=== PATIENT | female | born 1980 | race Caucasian/White ===

== ENCOUNTER 2019-06-08 08:07 | Day surgery (SDC) | payer BC ==
[~2019-06-08] VITALS: Ht 157.5 cm; Wt 96.2 kg
[2019-06-08 09:40] LABS: HCG,QUAL RESULT NEGATIVE (NEGATIVE)
[2019-06-08] MEDS ORDERED: PROPOFOL 200MG/ 20ML VIAL (DIPRIVAN) IV ONE (12:00)
[2019-06-08] MEDS ORDERED: fentaNYL CITRATE/PF 100 MCG/2 ML AMP ONE (12:00)
[2019-06-08] MEDS ORDERED: MIDAZOLAM HCL 5 MG/ML VIAL (VERSED) IV ONE (12:00)
[2019-06-08] MEDS ORDERED: NS 1000 ML IV.SOLN IV ONE (12:00)
[2019-06-08] MEDS ORDERED: LR 1,000 ML IV.SOLN IV ONE (12:00)
[2019-06-08] MEDS ORDERED: ONDANSETRON HCL 4 MG/2 ML VIAL ONE (12:00)
[2019-06-08] MEDS ORDERED: SEVOFLURANE 15 MIN GAS INH ONE (12:00)
[2019-06-08 12:47] VITALS: BP_SYST 113
== END 2019-06-08 13:40 | disposition home or self-care (01) ==
LOC: SDS 08:07 → SMU 08:07 → SDS 13:40
PROVIDERS: ATTEND Obstetrics & Gynecology
DX: N92.0 Excessive and frequent menstruation with regular cycle (principal); D25.9 Leiomyoma of uterus, unspecified; E66.01 Morbid (severe) obesity due to excess calories; D50.0 Iron deficiency anemia secondary to blood loss (chronic)
CPT/HCPCS: 84703; 88305; J2250; J2405; J2704; J3010; J7030; J7120